=== PATIENT | female | born 1985 | race African-American/Black ===

== ENCOUNTER 2024-05-27 09:20 | Emergency (ER) | payer OTHER ==
[2024-05-27 10:08] VITALS: RESP 16; TEMP 98.1; BMI 23.3
[2024-05-27] MEDS ORDERED: ACETAMINOPHEN INJECTION 100 ML ONE (10:16)
[2024-05-27] MEDS ORDERED: ONDANSETRON 4 MG/2 ML VIAL ONE (10:16)
[2024-05-27 10:23] LABS: BASO % 0.5 % (0-2.0); EOS % 0.9 % (0-4.5); HEMATOCRIT 35.5 % (32.4-45.2); HEMOGLOBIN 11.5 GM/dL (10.7-15.3); LYMPH % 32.9 % (8-40); MCH 29.3 pg (25.7-33.7); MCHC 32.3 g/dl (32.0-36.0); MEAN CELL VOLUME 90.8 fl (80-96); MEAN PLT VOLUME 8.2 fl (7.5-11.1); MONO % 11.8 % (3.8-10.2); NEUT % 53.9 % (42.8-82.8); PLATELET COUNT 229 10^3/uL (134-434); RBC 3.91 M/mm3 (3.60-5.2); RDW 12.6 % (11.6-15.6); WHITE BLOOD COUNT 4.2 K/mm3 (4.0-10.0)
[2024-05-27] MEDS: ONDANSETRON 4 MG/2 ML VIAL IVPUSH ONE (10:23)
[2024-05-27] MEDS: SODIUM CHLORIDE 0.9% 500 ML INFUS.BAG IV ONE (10:23)
[2024-05-27] MEDS: ACETAMINOPHEN 1000 MG/100 ML BAG IVPB ONE (10:23)
[2024-05-27 10:39] LABS: HCG,QUALITATIVE URINE Negative
[2024-05-27 10:43] LABS: EPI CELLS 20 /uL (0-25.1); HYALINE CASTS 0 /uL (0-3.1); PH,URINE 5.5 (5.0-8.0); URINE APPEARANCE CLEAR; URINE BACTERIA 133 /uL (0-1359); URINE BILIRUBIN NEGATIVE (NEGATIVE); URINE COLOR ORANGE; URINE GLUCOSE (UA) NEGATIVE (NEGATIVE); URINE KETONE NEGATIVE (NEGATIVE); URINE LEUK ESTERASE TRACE (NEGATIVE); URINE NITRITE NEGATIVE (NEGATIVE); URINE PROTEIN 1+ (NEGATIVE); URINE RBC 8439 /uL (0-23.9); URINE WBC 49 /uL (0-25.8)
[2024-05-27 10:46] LABS: POTASSIUM 3.8 mmol/L (3.5-5.1)
[2024-05-27 10:48] LABS: CALCIUM 9.2 mg/dL (8.5-10.1)
[2024-05-27 10:49] LABS: ALBUMIN 4.3 g/dl (3.4-5.0); BLOOD UREA NITROGEN 12.7 mg/dL (7-18)
[2024-05-27 10:53] LABS: BILIRUBIN,TOTAL 1.1 mg/dL (0.2-1); TOT PROT 7.7 g/dl (6.4-8.2)
[2024-05-27 12:24] VITALS: BP 112/61; PULSE 67
== END 2024-05-27 13:15 | disposition home or self-care (01) ==
LOC: JER 09:20
PROC: 3E033NZ Introduction of Analgesics, Hypnotics, Sedatives into Peripheral Vein, Percutaneous Approach (ICD-10-PCS; principal; 2024-05-27)
PROC: 3E033GC Introduction of Other Therapeutic Substance into Peripheral Vein, Percutaneous Approach (ICD-10-PCS; 2024-05-27)
DX: R10.84 Generalized abdominal pain (principal); R11.0 Nausea
CPT/HCPCS: 36415; 80053; 81003; 84703; 85025; 96374; 96375; 99284-25; J0131